=== PATIENT | female | born 1945 | race Caucasian/White ===

== ENCOUNTER 2017-05-27 13:23 | Emergency (ER) | payer MEDICARE, OTHER ==
[~2017-05-27] VITALS: Ht 170.2 cm; Wt 83.0 kg
[2017-05-27 13:27] VITALS: Ht 170.2 cm; Wt 83.0 kg
[2017-05-27] MEDS ORDERED: TETRACAINE 0.5% 4 ML OPH LEFT EYE ONE (15:30)
[2017-05-27] MEDS ORDERED: FLUORESCEIN STRIP LEFT EYE ONE (15:30)
--- NOTE | 2017-05-27 15:56 | ERD ---
ER Documentation Chief Complaint Date/Time DATE: 05/27/17 TIME: 15:54 Chief Complaint left eye blurred vision since yesterday HPI This is a 72-year-old female presents the emergency department today complaining of some blurred vision in her left eye and a popped blood vessel. Patient states this happened her 1 time in the past and she took medicine for it. States she does have some dizziness and occasional headaches. See she has a history of glaucoma and takes lanaprosil. States that she had an eye doctor in [place] but has been living out here for the past year. States she does have an eye doctor out here but was unable to see him today and that she could see him tomorrow or . Denies any headache currently. Denies any nausea vomiting, fevers or chills ROS All systems reviewed and are negative except as per history of present illness. Medications Home Meds Active Scripts Ciprofloxacin Opht* (Ciloxan*) 0.3%-3.5 Opht Oint, 1 APPLIC LEFT EYE TID for 7 Days, #1 EA Prov:MARIMAR SOSA PA-C 05/27/17 Physical Exam Vitals Vital Signs Date Time Temp Pulse Resp B/P Pulse Ox O2 Delivery O2 Flow Rate FiO2 05/27/17 13:27 98.2 72 18 106/51 97 Physical Exam Const: Pleasant, no acute distress Head: Atraumatic Eyes: Left eye with mild conjunctival erythema PERRLA. EOM intact ENT: Normal External Ears, Nose and Mouth. Neck: Full range of motion..~ No meningismus. Resp: Clear to auscultation bilaterally Cardio: Regular rate and rhythm, no murmurs Skin: No petechiae or rashes Back: No midline or flank tenderness Ext: No cyanosis, or edema Neur: Awake and alert. No focal neurologic deficits. No gait ataxia Psych: Normal Mood and Affect Results 24 hrs Current Medications Medications (Trade) Dose Ordered Sig/Luis Route PRN Reason Start Time Stop Time Status Last Admin Dose Admin Tetracaine HCl (Tetracaine 0.5% Steri-Unit Mary Ann) 1 drop ONCE ONCE LEFT EYE 05/27/17 15:30 05/27/17 15:31 DC Fluorescein Sodium (Wxbue-Q-Nrovp) 1 strip ONCE ONCE LEFT EYE 05/27/17 15:30 05/27/17 15:31 DC DIAGNOSTIC IMAGING REPORT Patient: RADHA RICKETTS : 1945 Age: 72 Sex: F MR #: [id number] DOS: 05/27/17 0000 Ordering MD: MARIMAR SOSA PA-C Location: [facility] Room/Bed: PROCEDURE: CT brain without contrast CLINICAL INDICATION: Dizziness, blurred vision, headaches TECHNIQUE: CT of the brain without contrast performed on a multidetector CT scanner, with multiplanar reformats. One or more of the following dose reduction techniques were used: Automated exposure control, adjustment in mA and / or kV according to patient size, use of iterative reconstructive technique. CTDIvol = 44 mGy; DLP = 630 mGy-cm. COMPARISON: None available FINDINGS: No acute intracranial hemorrhage is identified. No extra-axial fluid collection is seen. There is no mass effect. No midline shift is identified. The ventricles and sulci are mild to moderately enlarged compatible with volume loss. There are minimal areas of hypodensity in the periventricular - deep white matter which are nonspecific but suggestive of chronic small vessel ischemic changes. Martinez-white differentiation is preserved. Sella is noted to be partly empty, mildly enlarged. Atherosclerotic calcifications of the intracranial internal carotid arteries are noted. Osseous structures are unremarkable. Mastoid air cells and imaged paranasal sinuses grossly clear. IMPRESSION: 1. No evidence of acute intracranial pathology. 2. Mild to moderate volume loss, with minimal chronic small vessel ischemic changes. 3. Partly empty sella noted. RPTAT: VV .Fernando Zheng MD, MD Date Time Electronically viewed and signed by .Fernando Zheng MD, MD on 05/27/2017 16:21 .O/ CC: MARIMAR SOSA PA-C DIAGNOSTIC IMAGING REPORT Patient: RADHA RICKETTS : 1945 Age: 72 Sex: F MR #: [id number] DOS: 05/27/17 0000 Ordering MD: MARIMAR SOSA PA-C Location: [facility] Room/Bed: PROCEDURE: US Soft Tissue. CLINICAL INDICATION: Blurry vision, left eye. TECHNIQUE: Targeted sonographic imaging of the right and left optic globes was performed. COMPARISON: None. FINDINGS: The optic globes are normal in contour. There is no evidence of right mild attachment. Scattered echogenic striations are seen throughout the vitreous chambers, bilaterally. Imaging findings can be seen as a result of vitreous hemorrhage or degeneration. IMPRESSION: Scattered echogenic striations throughout the vitreous chambers, bilaterally. Imaging findings can be seen as a result of vitreous hemorrhage or degeneration. Ophthalmic follow-up advised. No evidence of retinal detachment. RPTAT: HLST .Jovanna Mak MD, MD Date Time Electronically viewed and signed by .Jovanna Mak MD, MD on 05/27/2017 17:51 .T/ CC: MARIMAR SOSA PA-C Procedures/MDM Visual acuity Right eye 20/40 Left eye 20/40 Bilateral 20/[address] noncontrast shows no evidence of acute intracranial pathology. There is mild to moderate volume loss with minimal chronic small vessel ischemic changes. Orbital ultrasound shows scattered echogenic striations throughout the vitreous chambers bilaterally. Imaging findings have be seen as a result of vitreous hemorrhage or degeneration. Ophthalmic follow-up is advised. There is no evidence of retinal detachment. Brigido-Pen right eye 31, 31, 33 Left eye 31, 31.31 Patient's eye pressures are elevated however I do not feel that this is acute. Patient has a history of glaucoma. I have low suspicion for acute narrow angle glaucoma, hyphema, globe rupture. Fluoriscene eye test with was last nose no evidence of corneal abrasion. I did stain the eye patient did appear to have some drainage that she did indicate later that had been there for a week. Patient may also have conjunctivitis. Patient symptoms at this time is consistent with left eye redness and blurred vision. 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 Discussed the patient with Dr. Vazquez and he has recommended patient be discharged with Ciloxan. At this time the patient is stable for discharge and outpatient management. Patient should follow up with their PCP in the next 1-2 days. They may return to the emergency department sooner for any persistent or worsening of symptoms. Patient understood and agreed with the plan. Departure Diagnosis: Primary Impression: Blurry vision Condition: MARIMAR Morrow PA-C May 27, 2017 15:56
--- NOTE | 2017-05-27 16:21 | RADRPT ---
PROCEDURE: CT brain without contrast CLINICAL INDICATION: Dizziness, blurred vision, headaches TECHNIQUE: CT of the brain without contrast performed on a multidetector CT scanner, with multiplan ar reformats. One or more of the following dose reduction techniques were used: Automated exposure control, adjustment in mA and / or kV according to patient size, use of iterative reconstructive alesia hnique. CTDIvol = 44 mGy; DLP = 630 mGy-cm. COMPARISON: None available FINDINGS: No acute intracranial hemorrhage is identified. No extra-axial fluid collection is seen. There is no mass effect. No midline shift is identified. The ventricles and sulci are mild to moderately enlarged compatible with volume loss. There are minimal areas of hypodensity in the periventricular - deep white matter which are nonspeci fic but suggestive of chronic small vessel ischemic changes. Martinez-white differentiation is preserve d. Sella is noted to be partly empty, mildly enlarged. Atherosclerotic calcifications of the intracranial internal carotid arteries are noted. Osseous structures are unremarkable. Mastoid air cells and imaged paranasal sinuses grossly clear. IMPRESSION: 1. No evidence of acute intracranial pathology. 2. Mild to moderate volume loss, with minimal chronic small vessel ischemic changes. 3. Partly empty sella noted. RPTAT: VV .Fernando Zheng MD, Date Time Electronically viewed and signed by .Fernando Zheng MD, on 05/27/2017 16:21 .O/
--- NOTE | 2017-05-27 17:51 | RADRPT ---
PROCEDURE: US Soft Tissue. CLINICAL INDICATION: Blurry vision, left eye. TECHNIQUE: Targeted sonographic imaging of the right and left optic globes was performed. COMPARISON: None. FINDINGS: The optic globes are normal in contour. There is no evidence of right mild attachment. Scattered e chogenic striations are seen throughout the vitreous chambers, bilaterally. Imaging findings can be seen as a result of vitreous hemorrhage or degeneration. IMPRESSION: Scattered echogenic striations throughout the vitreous chambers, bilaterally. Imaging findings can be seen as a result of vitreous hemorrhage or degeneration. Ophthalmic follow-up advised. No evidence of retinal detachment. RPTAT: HLST .Jovanna Mak MD, MD Date Time Electronically viewed and signed by .Jovanna Mak MD, on 05/27/2017 17:51 .T/
[2017-05-27] MEDS ORDERED: CPR3OO3.5 LEFT EYE (18:29)
[2017-05-27 18:38] VITALS: BP 118/62; PULSE 78; RESP 18; TEMP 97.9
== END 2017-05-27 18:38 | disposition home or self-care (01) ==
LOC: FTE 13:23
DX: H53.8 Other visual disturbances (principal); R51 Headache
CPT/HCPCS: 70450; 76536